=== PATIENT | male | born 1980 | race Two or more races ===

== ENCOUNTER 2017-09-15 07:49 | Outpatient (CLI) | payer OTHER ==
[2017-09-16 06:28] LABS: POTASSIUM 3.9 mmol/L (3.5-5.1)
[2017-09-16 06:29] LABS: CALCIUM 9.3 mg/dL (8.4-11.0); CREATININE 0.87 mg/dL (0.55-1.30); TOTAL BILIRUBIN 0.5 mg/dL (0.0-1.0)
[2017-09-16 06:30] LABS: ALBUMIN 3.5 g/dL (3.4-4.8)
[2017-09-16 06:31] LABS: THYROID STIMULATING HORMONE 5.97 uIu/mL (0.34-4.82)
[2017-09-16 16:08] LABS: HEMATOCRIT 43.9 % (36-54); HEMOGLOBIN 14.2 g/dL (14.0-18.0); MEAN CORPUSCULAR HEMOGLOBIN 26 pg (27-31); MEAN CORPUSCULAR HGB CONC 32 % (32-36); MEAN CORPUSCULAR VOLUME 81 fL (79.0-98.0); PLATELET COUNT (AUTO) 317 K/uL (130-430); RED BLOOD CELL COUNT(AUTO) 5.43 MIL/uL (4.2-6.2); WHITE BLOOD COUNT (AUTO) 7.2 K/uL (4.8-10.8)
[2017-09-16 16:09] LABS: BASOPHILS % (AUTO) 0.4 % (0.0-2.0); EOSINOPHILS # (AUTO) 0.1 K/uL (0.0-0.4); LYMPHOCYTES % (AUTO) 27.8 % (20.5-51.5); MONOCYTES # (AUTO) 0.5 K/uL (0.0-1.0); MONOCYTES % (AUTO) 7.5 % (1.7-9.3); NEUTROPHILS # (AUTO) 4.6 K/uL (1.8-7.7); NEUTROPHILS % (AUTO) 63.3 % (40.0-70.0)
[2017-09-16 16:52] LABS: COLOR,URINE YELLOW (YELLOW)
[2017-09-16 16:53] LABS: BILIRUBIN,URINE NEGATIVE (NEGATIVE); BLOOD, URINE TRACE (NEGATIVE); CLARITY/URINE CLOUDY (CLEAR); GLUCOSE,URINE NEGATIVE (NEGATIVE); KETONES,URINE NEGATIVE (NEGATIVE); LEUKOCYTE ESTERASE ,URINE NEGATIVE (NEGATIVE); NITRITE, URINE NEGATIVE (NEGATIVE); PH,URINE 5.5 (5.0-8.0); PROTEIN URINE NEGATIVE (NEGATIVE); UROBILINOGEN,URINE 0.2 (0.2-1.0)
[2017-09-16 16:56] LABS: BACTERIA,URINE FEW /HPF (None Seen); RBC,URINE 0-3 /HPF (0-3); WBC,URINE 0-3 /HPF (0-3)
[2017-09-17 08:10] LABS: PROSTATE SPECIFIC AG 0.3 ng/mL (0.0-4.0)
[2017-09-17 13:54] LABS: HEMOGLOBIN A1C 5.7 % (4.8-5.6)
== END 2017-09-15 22:20 | disposition home or self-care (01) ==
LOC: SRD 07:49
PROVIDERS: ATTEND Internal Medicine
DX: N32.89 Other specified disorders of bladder (principal); M54.9 Dorsalgia, unspecified; R31.9 Hematuria, unspecified; N39.0 Urinary tract infection, site not specified
CPT/HCPCS: 36415; 76770; 80053; 81000-TC; 82306; 82607; 83036; 84153; 84443-TC; 84550-TC; 85025; 87086

== ENCOUNTER 2017-09-20 14:08 | Outpatient (CLI) | payer OTHER | END 2017-09-20 19:10 | disposition home or self-care (01) | LOC: SLB 14:08 | PROVIDERS: ATTEND Internal Medicine | DX: M79.1 Myalgia (principal) | CPT/HCPCS: 36415; 86308-TC ==